=== PATIENT | male | born 1985 ===

== ENCOUNTER 2019-03-24 13:48 | Emergency (ER) | payer BC ==
[~2019-03-24] VITALS: Ht 167.6 cm; Wt 72.7 kg
[2019-03-24] MEDS ORDERED: HYDROCODONE/ACETAMINOPHEN 5-325 MG TABLET PO ONE (14:00)
[2019-03-24 16:10] VITALS: BP 107/66
== END 2019-03-24 16:18 | disposition home or self-care (01) ==
LOC: EMS 13:50
DX: S43.102A Unspecified dislocation of left acromioclavicular joint, initial encounter (principal); W19.XXXA Unspecified fall, initial encounter; Y93.89 Activity, other specified; Y92.89 Other specified places as the place of occurrence of the external cause; Y99.8 Other external cause status